=== PATIENT | male | born 1960 | race Caucasian/White ===

== ENCOUNTER 2017-07-01 16:53 | Emergency (ER) | payer MEDICAID ==
[~2017-07-01] VITALS: Ht 200.7 cm; Wt 100.0 kg
[2017-07-01 17:01] VITALS: BP 116/83
[2017-07-01] MEDS ORDERED: neomy sulf/bacitrac zn/polymixin b oint 14.2 gm tube TP SCH (17:50)
== END 2017-07-01 18:09 | disposition home or self-care (01) ==
LOC: ER 16:54
DX: S81.811D Laceration without foreign body, right lower leg, subsequent encounter (principal); X58.XXXD Exposure to other specified factors, subsequent encounter; Z88.8 Allergy status to other drugs, medicaments and biological substances
CPT/HCPCS: 99282; A6255

== ENCOUNTER 2017-07-04 06:50 | Emergency (ER) | payer MEDICAID ==
[~2017-07-04] VITALS: Ht 200.7 cm; Wt 89.0 kg
[2017-07-04 06:56] VITALS: BP 140/65
[2017-07-04] MEDS ORDERED: DOXY100C43 PO (08:45)
[2017-07-04] MEDS ORDERED: bacitracin 15gm ointment TP ONE (08:45)
== END 2017-07-04 09:09 | disposition home or self-care (01) ==
LOC: ER 06:51
DX: Z48.00 Encounter for change or removal of nonsurgical wound dressing (principal); Z88.8 Allergy status to other drugs, medicaments and biological substances
CPT/HCPCS: 99284

== ENCOUNTER 2018-09-15 08:41 | Emergency (ER) | payer MEDICAID ==
[~2018-09-15] VITALS: Ht 200.7 cm; Wt 91.6 kg
[2018-09-15 08:45] VITALS: BP 119/89
--- NOTE | 2018-09-15 09:36 | NUR ---
PT BECAME ARGUMENTATIVE AND WOULD NOT ALLOW US TO DRAW HIS BLOOD. PT STATES HE CAME IN TO FIND OUT IF HE WAS DEHYDRATED AND HAT WE WERE TREATING HIM POORLY BECAUSE I SCREENED HIM FOR HOMELESS AND DRUG USE.
[2018-09-15 10:07] LABS: URINE AMPHETAMINE SCREEN POSITIVE (Neg); URINE BARBITUATE SCREEN NEGATIVE (Neg); URINE BENZODIAZEPINES SCREEN NEGATIVE (Neg); URINE CANNABINOID SCREEN POSITIVE (Neg); URINE COCAINE SCREEN NEGATIVE (Neg); URINE METHADONE SCREEN NEGATIVE (Neg); URINE OPIATE SCREEN NEGATIVE (Neg); URINE PHENCYCLIDINE SCREEN NEGATIVE (Neg)
== END 2018-09-15 09:44 | disposition left against medical advice (07) ==
LOC: ER 08:41
DX: R42 Dizziness and giddiness (principal); R53.1 Weakness; R11.0 Nausea; Z88.8 Allergy status to other drugs, medicaments and biological substances
CPT/HCPCS: 71045; 80305; 82948; 93005; 99284

== ENCOUNTER 2019-01-15 19:05 | Emergency (ER) | payer MEDICAID ==
[~2019-01-15] VITALS: Ht 200.7 cm; Wt 75.7 kg
[2019-01-15] MEDS ORDERED: acetaminophen 325mg tablet PO ONE (21:05)
--- NOTE | 2019-01-15 21:07 | NUR ---
PATIENT COMPLAINS OF PAIN AND REQUESTS NARCOTIC RX. PATIENT INSTRUCTED TO SEE SURGEON WHO PERFORMED THE PROCEDURE. DR. MOSQUEDA NOTIFIED OF COMPLAINT AND TYLENOL ORDERED FOR HIS PAIN.
[2019-01-15 21:08] VITALS: BP 101/60
--- NOTE | 2019-01-15 21:12 | NUR ---
Patient refused tylenol. He states, "I'll just go buy some heroin."
== END 2019-01-15 21:12 | disposition home or self-care (01) ==
LOC: ER 19:05
DX: T81.31XA Disruption of external operation (surgical) wound, not elsewhere classified, initial encounter (principal); F17.200 Nicotine dependence, unspecified, uncomplicated; Z85.038 Personal history of other malignant neoplasm of large intestine; Z88.8 Allergy status to other drugs, medicaments and biological substances; Z59.0 Homelessness; Z93.3 Colostomy status; Y92.89 Other specified places as the place of occurrence of the external cause
CPT/HCPCS: 99284

== ENCOUNTER 2019-04-07 14:48 | Emergency (ER) | payer MEDICAID ==
[~2019-04-07] VITALS: Ht 193 cm; Wt 75.0 kg
[2019-04-07 14:56] VITALS: BP 112/66
== END 2019-04-07 15:17 ==
LOC: ER 14:48
DX: Z02.89 Encounter for other administrative examinations (principal); Z93.3 Colostomy status; Z85.038 Personal history of other malignant neoplasm of large intestine; Z59.0 Homelessness; Z88.8 Allergy status to other drugs, medicaments and biological substances; Z92.21 Personal history of antineoplastic chemotherapy
CPT/HCPCS: 99283

== ENCOUNTER 2019-09-06 01:32 | Emergency (ER) | payer MEDICAID, OTHER ==
[~2019-09-06] VITALS: Ht 198.1 cm; Wt 95.5 kg
[2019-09-06] MEDS ORDERED: nitroGLYCERIN 0.4mg SUBLingual tab SL PRN (01:40)
[2019-09-06] MEDS ORDERED: acetaminophen 325mg tablet PO ONE (02:00)
[2019-09-06] MEDS ORDERED: ketorolac trometh inj. 60 MG/2 ML VIAL IM ONE (02:00)
[2019-09-06] MEDS ORDERED: ketorolac trometh. 30mg/ml inj. IV ONE (02:05)
[2019-09-06 02:10] LABS: BASOPHILS % (AUTO) 0.6 % (0-1); EOSINOPHILS # (AUTO) 0.2 X10'3 (0-0.9); EOSINOPHILS % (AUTO) 3.1 % (0-6); HEMATOCRIT 41.7 % (42.0-52.0); HEMOGLOBIN 14.7 g/dl (14.0-17.9); LYMPHOCYTES # (AUTO) 1.8 X10'3 (1.1-4.8); MEAN CORPUSCULAR HEMOGLOBIN 32.1 PG (27.0-31.0); MEAN CORPUSCULAR HGB CONC 35.2 g/dL (33.0-36.5); MEAN CORPUSCULAR VOLUME 91.2 FL (78-98); MEAN PLATELET VOLUME 7.1 FL (7.4-10.4); MONOCYTES # (AUTO) 0.8 X10'3 (0-0.9); MONOCYTES % (AUTO) 13.4 % (2-12); NEUTROPHILS # (AUTO) 3.2 X10'3 (1.8-7.7); NEUTROPHILS % (AUTO) 52.9 % (42-75); PLATELET COUNT 182 X10'3 (140-440); RED BLOOD COUNT 4.57 X10'6 (4.70-6.10); RED CELL DISTRIBUTION WIDTH 14.1 % (11.5-14.5)
[2019-09-06] MEDS ORDERED: iohexol 350MG/ML 100ml bottle IV ONE (02:11)
[2019-09-06] MEDS ORDERED: ASPI-1264 PO (02:13)
[2019-09-06] MEDS ORDERED: OXYC10TA57 PO (02:13)
[2019-09-06] MEDS ORDERED: DOCU100C40 PO (02:13)
[2019-09-06 02:14] LABS: PARTIAL THROMBOPLASTIN TIME 27 SECONDS (22-32)
[2019-09-06 02:20] LABS: ALANINE AMINOTRANSFERASE 42 U/L (12-78); ALBUMIN 3.8 G/DL (3.4-5.0); ALKALINE PHOSPHATASE 80 IU/L (46-116); ANION GAP 10 (8-16); ASPARTATE AMINO TRANSFERASE 31 U/L (10-37); BILIRUBIN,TOTAL 0.4 MG/DL (0.1-1.0); BLOOD UREA NITROGEN 18 MG/DL (7-18); BUN/CREATININE RATIO 20.2 (5.4-32.0); CALCIUM 9.1 MG/DL (8.5-10.1); CHLORIDE 106 MMOL/L (99-107); CREATININE 0.89 MG/DL (0.60-1.10); GLUCOSE 93 MG/DL (70-104); POTASSIUM 3.9 MMOL/L (3.5-5.1); SODIUM 140 MMOL/L (135-145); TOTAL CARBON DIOXIDE 24.4 MMOL/L (24-32); TOTAL PROTEIN 7.5 G/DL (6.4-8.2); eGFR 87 ML/MIN
[2019-09-06 04:35] VITALS: BP 124/72
== END 2019-09-06 04:37 ==
LOC: ER 01:33 → EEVIPCON 01:33 → ER 04:37
DX: R07.89 Other chest pain (principal); Z85.038 Personal history of other malignant neoplasm of large intestine; Z79.82 Long term (current) use of aspirin; Z88.8 Allergy status to other drugs, medicaments and biological substances
CPT/HCPCS: 36415; 71045; 71275; 80053; 84484; 85025; 85610; 85730; 93005; 96374; 99285; J1885; Q9967

== ENCOUNTER 2020-03-09 06:14 | Inpatient (IN) | payer OTHER ==
[~2020-03-09] VITALS: Ht 190.5 cm; Wt 106.0 kg
[~2020-03-09 06:14] MED LIST: ASPI-1264 PO; DOCU100C40 PO; OXYC10TA57 PO
[2020-03-09] MEDS ORDERED: iohexol 350MG/ML 100ml bottle IV ONE (06:20)
[2020-03-09 06:33] LABS: BASOPHILS % (AUTO) 0.7 % (0-1); EOSINOPHILS # (AUTO) 0.2 X10'3 (0-0.9); EOSINOPHILS % (AUTO) 6.7 % (0-6); HEMATOCRIT 40.7 % (42.0-52.0); HEMOGLOBIN 14.1 g/dl (14.0-17.9); LYMPHOCYTES # (AUTO) 1.2 X10'3 (1.1-4.8); LYMPHOCYTES % (AUTO) 35.1 % (21-51); MEAN CORPUSCULAR HGB CONC 34.7 g/dL (33.0-36.5); MEAN CORPUSCULAR VOLUME 92.4 FL (78-98); MEAN PLATELET VOLUME 6.9 FL (7.4-10.4); MONOCYTES # (AUTO) 0.2 X10'3 (0-0.9); MONOCYTES % (AUTO) 6.5 % (2-12); NEUTROPHILS # (AUTO) 1.8 X10'3 (1.8-7.7); PLATELET COUNT 162 X10'3 (140-440); RED CELL DISTRIBUTION WIDTH 13.9 % (11.5-14.5); WHITE BLOOD COUNT 3.5 X10'3 (4.5-11.0)
[2020-03-09 06:46] LABS: PARTIAL THROMBOPLASTIN TIME 26 SECONDS (22-32)
[2020-03-09 06:47] LABS: ALANINE AMINOTRANSFERASE 34 U/L (12-78); ALBUMIN 3.4 G/DL (3.4-5.0); ALKALINE PHOSPHATASE 68 IU/L (46-116); ANION GAP 7 (8-16); ASPARTATE AMINO TRANSFERASE 20 U/L (10-37); BILIRUBIN,TOTAL 0.4 MG/DL (0.1-1.0); BLOOD UREA NITROGEN 14 MG/DL (7-18); BUN/CREATININE RATIO 15.6 (5.4-32.0); CALCIUM 8.7 MG/DL (8.5-10.1); CHLORIDE 103 MMOL/L (99-107); GLUCOSE 102 MG/DL (70-104); POTASSIUM 3.7 MMOL/L (3.5-5.1); SODIUM 139 MMOL/L (135-145); TOTAL CARBON DIOXIDE 29.2 MMOL/L (24-32); TOTAL PROTEIN 6.9 G/DL (6.4-8.2); eGFR 86 ML/MIN
[2020-03-09 06:51] LABS: TROPONIN I < 0.04 NG/ML (0.0-0.05)
[2020-03-09] MEDS ORDERED: potassium Cl 20 mEq SR tablet PO PRN ×2 (08:05)
[2020-03-09] MEDS ORDERED: magnesium hydroxide 30ml (MOM) UD suspension PO PRN (08:05)
[2020-03-09] MEDS ORDERED: ondansetron/PF 4mg/2ml inj IV PRN (08:05)
[2020-03-09] MEDS ORDERED: aspirin 325mg tablet, delayed-release (Ecotrin) PO ONE (08:05)
[2020-03-09] MEDS ORDERED: potassium CL 10mEq/100ml bag 100 ML IV PRN ×2 (08:05)
[2020-03-09] MEDS ORDERED: mag hydrox/Alum hydrox/simeth 30ml oral suspension PO PRN (08:05)
[2020-03-09] MEDS ORDERED: magnesium 4gm in 100ml NS 100 ML IV PRN (08:05)
[2020-03-09] MEDS ORDERED: acetaminophen 325mg tablet PO PRN (08:05)
[2020-03-09] MEDS ORDERED: magnesium 2GM in 50ml NS 50 ML IV PRN (08:05)
--- NOTE | 2020-03-09 08:28 | NUR ---
DR FAN AT BEDSIDE.
[2020-03-09 08:37] LABS: CHOLESTEROL 143 MG/DL (0-200); HDL CHOLESTEROL 48 MG/DL (35-60); LDL CHOLESTEROL 85 MG/DL (50-100); TRIGLYCERIDES 131 MG/DL (20-135)
[2020-03-09] MEDS: atorvastatin 20mg tablet PO SCH (09:09)
--- NOTE | 2020-03-09 09:18 | NUR ---
speech theraist at bedside.
[2020-03-09] MEDS ORDERED: OXYC10TA57 PO (11:01)
[2020-03-09] MEDS ORDERED: OXYC20TA40 PO (11:37)
[2020-03-09] MEDS ORDERED: diazepam inj 5 MG/ML inj. IV ONE (14:30)
[2020-03-09 18:00] VITALS: BP 130/81
--- NOTE | 2020-03-09 18:13 | NUR ---
Problems reprioritized. Patient report given, questions answered & plan of care reviewed with Claudia Bain.
[2020-03-09] MEDS: oxyCODONE IR 5mg (immed. release) tablet PO PRN (18:25)
[2020-03-09] MEDS: K and/or MAG REPLACEMENT MC SCH (19:43)
[2020-03-09] MEDS: enoxaparin 40mg/0.4ml syringe SQ SCH (19:53)
[2020-03-09 22:00] VITALS: BP 107/74
[2020-03-10 02:00] VITALS: BP 113/76
[2020-03-10 06:00] VITALS: BP 107/77
[2020-03-10 06:34] LABS: BASOPHILS % (AUTO) 0.6 % (0-1); EOSINOPHILS # (AUTO) 0.2 X10'3 (0-0.9); EOSINOPHILS % (AUTO) 5.6 % (0-6); HEMATOCRIT 40.4 % (42.0-52.0); HEMOGLOBIN 13.7 g/dl (14.0-17.9); LYMPHOCYTES % (AUTO) 32.9 % (21-51); MEAN CORPUSCULAR HEMOGLOBIN 31.3 PG (27.0-31.0); MEAN CORPUSCULAR HGB CONC 33.9 g/dL (33.0-36.5); MEAN CORPUSCULAR VOLUME 92.3 FL (78-98); MONOCYTES # (AUTO) 0.3 X10'3 (0-0.9); MONOCYTES % (AUTO) 8.3 % (2-12); NEUTROPHILS # (AUTO) 1.6 X10'3 (1.8-7.7); NEUTROPHILS % (AUTO) 52.6 % (42-75); PLATELET COUNT 166 X10'3 (140-440); RED BLOOD COUNT 4.37 X10'6 (4.70-6.10); RED CELL DISTRIBUTION WIDTH 13.6 % (11.5-14.5)
--- NOTE | 2020-03-10 06:35 | NUR ---
reported to days. noted pt resting w/o distress. 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
[2020-03-10 06:50] LABS: ALANINE AMINOTRANSFERASE 34 U/L (12-78); ALBUMIN 3.2 G/DL (3.4-5.0); ALKALINE PHOSPHATASE 67 IU/L (46-116); ANION GAP 7 (8-16); ASPARTATE AMINO TRANSFERASE 23 U/L (10-37); BILIRUBIN,TOTAL 0.5 MG/DL (0.1-1.0); BLOOD UREA NITROGEN 15 MG/DL (7-18); BUN/CREATININE RATIO 17.6 (5.4-32.0); CALCIUM 8.7 MG/DL (8.5-10.1); CHLORIDE 105 MMOL/L (99-107); CREATININE 0.85 MG/DL (0.60-1.10); GLUCOSE 94 MG/DL (70-104); MAGNESIUM 2.1 MG/DL (1.5-2.4); SODIUM 141 MMOL/L (135-145); TOTAL CARBON DIOXIDE 29.4 MMOL/L (24-32); TOTAL PROTEIN 6.4 G/DL (6.4-8.2); eGFR > 90 ML/MIN
[2020-03-10] MEDS: aspirin 325mg tablet, delayed-release (Ecotrin) PO SCH (07:21)
[2020-03-10] MEDS: oxyCODONE IR 5mg (immed. release) tablet PO PRN ×3 (07:22→23:36)
[2020-03-10] MEDS: atorvastatin 20mg tablet PO SCH (07:23)
[2020-03-10] MEDS: K and/or MAG REPLACEMENT MC SCH ×2 (08:00→19:29)
[2020-03-10 08:58] LABS: PLATELET ESTIMATE NORMAL; TOTAL CELLS COUNTED 100
[2020-03-10 08:59] LABS: ELLIPTOCYTES FEW; SCHISTOCYTES FEW; TEAR DROP CELLS FEW
[2020-03-10 10:00] VITALS: BP 97/56
[2020-03-10] MEDS ORDERED: diazepam inj 5 MG/ML inj. IV ONE (11:05)
[2020-03-10 14:00] VITALS: BP 112/75
[2020-03-10 18:00] VITALS: BP 133/80
--- NOTE | 2020-03-10 18:08 | NUR ---
Problems reprioritized. Patient report given, questions answered & plan of care reviewed with Sherita SANTIAGO.
--- NOTE | 2020-03-10 18:37 | NUR ---
RECEIVED REPORT FROM MILLI SANTIAGO AND ASSUMED PATIENT CARE
[2020-03-10] MEDS: enoxaparin 40mg/0.4ml syringe SQ SCH (19:29)
[2020-03-10 22:00] VITALS: BP 117/84
[2020-03-11 02:00] VITALS: BP 109/79
[2020-03-11 06:00] VITALS: BP 131/54
--- NOTE | 2020-03-11 06:07 | NUR ---
REPORT GIVEN TO BÁRBARA SANTIAGO
--- NOTE | 2020-03-11 06:19 | NUR ---
Patient in room [facility]017. I have received report from Sherita SANTIAGO and had the opportunity to ask questions and assume patient care.
[2020-03-11 07:30] LABS: BASOPHILS % (AUTO) 0.4 % (0-1); EOSINOPHILS # (AUTO) 0.2 X10'3 (0-0.9); EOSINOPHILS % (AUTO) 7.8 % (0-6); HEMATOCRIT 37.9 % (42.0-52.0); HEMOGLOBIN 13.2 g/dl (14.0-17.9); LYMPHOCYTES # (AUTO) 1.1 X10'3 (1.1-4.8); LYMPHOCYTES % (AUTO) 35.9 % (21-51); MEAN CORPUSCULAR HEMOGLOBIN 31.9 PG (27.0-31.0); MEAN CORPUSCULAR HGB CONC 34.8 g/dL (33.0-36.5); MEAN CORPUSCULAR VOLUME 91.8 FL (78-98); MEAN PLATELET VOLUME 7.1 FL (7.4-10.4); MONOCYTES # (AUTO) 0.3 X10'3 (0-0.9); MONOCYTES % (AUTO) 10.9 % (2-12); NEUTROPHILS # (AUTO) 1.4 X10'3 (1.8-7.7); PLATELET COUNT 156 X10'3 (140-440); RED BLOOD COUNT 4.13 X10'6 (4.70-6.10); RED CELL DISTRIBUTION WIDTH 13.6 % (11.5-14.5); WHITE BLOOD COUNT 3.2 X10'3 (4.5-11.0)
[2020-03-11] MEDS: oxyCODONE IR 5mg (immed. release) tablet PO PRN (07:48)
[2020-03-11] MEDS: aspirin 325mg tablet, delayed-release (Ecotrin) PO SCH (07:48)
[2020-03-11] MEDS: atorvastatin 20mg tablet PO SCH (07:48)
[2020-03-11 07:50] LABS: ALANINE AMINOTRANSFERASE 32 U/L (12-78); ALBUMIN/GLOBULIN RATIO 0.9 (1.1-1.5); ALKALINE PHOSPHATASE 65 IU/L (46-116); ANION GAP 6 (8-16); ASPARTATE AMINO TRANSFERASE 19 U/L (10-37); BILIRUBIN,TOTAL 0.3 MG/DL (0.1-1.0); BLOOD UREA NITROGEN 18 MG/DL (7-18); BUN/CREATININE RATIO 21.2 (5.4-32.0); CALCIUM 8.2 MG/DL (8.5-10.1); CHLORIDE 105 MMOL/L (99-107); CREATININE 0.85 MG/DL (0.60-1.10); POTASSIUM 3.6 MMOL/L (3.5-5.1); SODIUM 140 MMOL/L (135-145); TOTAL CARBON DIOXIDE 28.7 MMOL/L (24-32); TOTAL PROTEIN 6.3 G/DL (6.4-8.2); eGFR > 90 ML/MIN
[2020-03-11] MEDS: K and/or MAG REPLACEMENT MC SCH (08:00)
[2020-03-11 08:01] LABS: GLUCOSE 101 MG/DL (70-104)
[2020-03-11 10:00] VITALS: BP 141/107
[2020-03-11] MEDS ORDERED: ATOR20TA66 PO (10:01)
--- NOTE | 2020-03-11 11:50 | NUR ---
Patient stable for discharge back to [facility]. All discharge instructions given to patient. IV discontinued with cannula intact.
== END 2020-03-11 11:30 | DRG 303 ==
LOC: ER 06:14 → EEVIPCON 06:14 → ED HOLD 08:02 → EDBEDREQ 09:25 → ORTHO 4S 13:05
PROVIDERS: ADMIT Family Medicine; ATTEND Family Medicine
DX: I99.8 Other disorder of circulatory system (principal); C18.9 Malignant neoplasm of colon, unspecified; D70.9 Neutropenia, unspecified; R13.10 Dysphagia, unspecified; R29.810 Facial weakness; Z79.82 Long term (current) use of aspirin; Z85.038 Personal history of other malignant neoplasm of large intestine; Z87.891 Personal history of nicotine dependence; Z93.3 Colostomy status; Z88.8 Allergy status to other drugs, medicaments and biological substances
CPT/HCPCS: 36415; 70450; 70496; 70498; 70544; 70551; 71045; 80053; 80061; 83735; 84484; 85007; 85025; 85610; 85730; 87081; 92508; 92616; 93005; 93306; 97116; 97161; 97530; 99285; G0378; J1650; J3360; Q9967